=== PATIENT | male | born 1950 | race Caucasian/White ===

== ENCOUNTER 2022-04-24 11:03 | Emergency (ER) | payer MEDICARE, SELFPAY ==
--- NOTE | ~2022-04-24 | XR_ITS ---
EXAMINATION: XR chest 2V DATE: 04/24/2022 13:30 INDICATION: Vomiting and diarrhea TECHNIQUE: Frontal and lateral views of the chest are obtained COMPARISON: 10/04/2011 FINDINGS: The lungs are free of acute opacities. No pleural effusion or pneumothorax. The cardiomedia stinal silhouette is normal. There are bridging osteophytes at multiple levels in the spine, consiste nt with diffuse idiopathic skeletal hyperostosis (DISH). IMPRESSION: 1. No acute cardiopulmonary abnormality. Reviewed, dictated and finalized at location A. CCO CLASSER
[2022-04-24 11:20] VITALS: BP 141/83; PULSE 99; RESP 16; TEMP 36.6; O2SAT 99
[2022-04-24 12:13] LABS: Basophils Percent Auto 0.3 % (0.2-1.2); Eosinophils Absolute Auto 0.1 K/mm3 (0-0.3); Eosinophils Percent Auto 1.7 % (0-4.4); Hematocrit 42.5 % (42.0-52.0); Hemoglobin 14.7 g/dL (14.0-18.0); Immature Granulocyte Absolute 0.01 K/mm3 (0.00-0.031); Immature Granulocyte Percent A 0.2 % (0-0.5); Lymphocytes Absolute Auto 1.34 K/mm3 (0.9-3.2); Lymphocytes Percent Auto 22.6 % (18.3-44.2); Mean Corpuscular HGB Conc 34.6 g/dl (32-36); Mean Corpuscular Hemoglobin 31.1 pg (26-34); Mean Corpuscular Volume 89.9 fl (80-100); Monocytes Absolute Auto 0.9 K/mm3 (0.1-0.6); Neutrophils Absolute Auto 3.6 K/mm3 (1.3-6.7); Neutrophils Percent Auto 60.2 % (45.5-73.1); Platelet Count Result 152 k/mm3 (150-375); Red Blood Count 4.73 M/mm3 (4.6-6.20); Red Cell Distribution Width 13.2 % (11.5-14.5); White Blood Count 5.9 K/mm3 (4.5-10.0)
[2022-04-24 12:22] LABS: Alanine Aminotransferase 23 U/L (6-50); Albumin Level 3.7 g/dL (3.5-5.1); Alkaline Phosphatase 37 U/L (38-126); Anion Gap 8 mmol/L (8-16); Aspartate Amino Transferase 23 U/L (17-59); Bilirubin,Total 0.6 mg/dL (0.2-1.3); Blood Urea Nitrogen 21 mg/dL (9-20); Calcium 8.5 mg/dL (8.4-10.2); Carbon Dioxide 25 mmol/L (22-30); Chloride 101 mmol/L (98-107); Estimated CRCL calculation 74 ml/min; Estimated Glomerular Filt Rate > 60; Glucose 101 mg/dL (65-110); Potassium 4.2 mmol/L (3.4-5.0); Sodium 134 mmol/L (137-145)
[2022-04-24 12:23] LABS: INR 1.1; Prothrombin Time 14.2 Seconds (11.1-14.7)
[2022-04-24 12:24] LABS: Partial Thromboplastin Time 27.5 SECONDS (22.3-36.8)
--- NOTE | 2022-04-24 13:17 | ECG_ITS ---
Measurements Intervals [place] Rate: 60 P: 72 MO: 141 QRS: -4 QRSD: 107 T: 29 QT: 408 QTc: 409 Interpretive Statements SINUS RHYTHM NORMAL ECG NO PREVIOUS ECG AVAILABLE FOR COMPARISON Electronically Signed On 04-24-2022 16:17:00 RN AMBULATORY by Kal Spears D.O.
[2022-04-24 14:12] VITALS: PULSE 63; RESP 13; O2SAT 99
--- NOTE | 2022-04-24 14:12 | ED.GENADULT ---
HPI - General Adult General Chief complaint: Unspecified Stated complaint: dark stools, vomiting blood, GI bleed? Time Seen by Provider: 04/24/22 12:55 History of Present Illness HPI narrative: Patient is a 71-year-old male who presents ER with concerns for possible internal bleeding or injury to his esophagus. 2 days ago he began having some nausea and could not vomit. He is having upset stomach. He started having diarrhea. He then forced himself to vomit. He then had a knot in the back of his throat that has improved since then. No pain in his chest. No exertional chest pain or pressure. No loss of consciousness. After forced himself to vomit he later vomited again and had some coffee-ground material within his emesis. Additionally after that he also had some dark black stools. He does report he took Pepto-Bismol before his stool turned dark. He is unsure if he took Pepto-Bismol before he vomited the coffee-ground material. He is not on any blood thinners. No history of gastric ulcers. Related Data Home Medications Medication Instructions Recorded Confirmed ascorbic acid (vitamin C) 500 mg mg PO 12/05/19 03/10/21 capsule garlic 1,000 mg capsule 1,000 mg PO DAILY 12/05/19 03/10/21 loratadine 10 mg tablet (Claritin) 10 mg PO DAILY 12/05/19 03/10/21 mecobalamin (vitamin B12) 1,000 1,000 mcg PO DAILY 12/05/19 03/10/21 mcg chewable tablet omega-3 fatty acids 1,000 mg 1,000 mg PO DAILY 12/05/19 03/10/21 capsule (Fish Oil Concentrate) Allergies Allergy/AdvReac Type Severity Reaction Status Date / Time No Known Allergies Allergy Verified 03/15/22 10:47 Review of Systems Review of Systems: All systems reviewed & are unremarkable except as noted in HPI and below Constitutional: Constitutional: Denies chills and Denies fever(s) ENT: Denies dysphagia and Reports sore throat Cardiovascular: Cardiovascular: Denies chest pain and Denies radiating jaw, neck or arm pain Respiratory: Respiratory: Denies cough and Denies dyspnea Gastrointestinal: Gastrointestinal: Denies abdominal pain, Reports melena, Reports coffee ground emesis, Reports nausea and Reports vomiting PMF Past Medical History Medical History Smith esophagus Degenerative disc disease mild Environmental allergies Erectile dysfunction Essential (primary) hypertension Finger fracture (~10/25/18) left hand - pointer finger GERD (gastroesophageal reflux disease) History of prostate cancer low grade, followed by urologist Pre-diabetes Prostate cancer Surgical History Surgical History History of arthroscopic knee surgery (~10/2011) History of hand surgery (~10/30/18) pointer finger on Left hand surgery Hx of colonoscopy 12/1995, 07/2005, 07/2010, 09/2013, 10/2018 Hx of tonsillectomy (~1963) Family History Family History (Updated 03/15/22 @ 10:57 by Gilma Clark CMA) Mother Family history of malignant neoplasm Father Family history of lung cancer Sibling Family history of lung cancer Sibling Dementia Sibling Dementia Social History Social History (Updated 03/15/22 @ 10:50 by Glima Clark [facility]) Smoking status: Never smoker Second hand tobacco smoke exposure: No Alcohol intake: current Alcohol use details: seldom Substance use: never Substance use type: does not use Gender identity (if verbalized by the patient): Male Exam Narrative: GENERAL: Well-appearing, well-nourished, and in no acute distress. HEAD: Normocephalic, atraumatic. CHEST: Clear to auscultation. No respiratory distress. HEART: Regular rate and rhythm. Normal peripheral pulses. ABDOMEN: Soft, nontender, nondistended. Rectal deferred. EXTREMITIES: Normal range of motion. No edema. SKIN: Warm, dry, no rash. NEURO: Alert and oriented x3. PSYCH: Normal mood and affect. Course Course Emergency Course:
[2022-04-24 14:52] VITALS: BP 137/75; PULSE 75; RESP 16
== END 2022-04-24 14:54 | disposition home or self-care (01) ==
LOC: ANHED 14:27
PROVIDERS: Emergency Medicine; Emergency Provider Emergency Medicine; PCP Family Medicine
DX: R19.5 Other fecal abnormalities (principal); R07.0 Pain in throat; I10 Essential (primary) hypertension; K21.9 Gastro-esophageal reflux disease without esophagitis; R73.03 Prediabetes; K22.70 Barrett's esophagus without dysplasia; Z85.46 Personal history of malignant neoplasm of prostate
CPT/HCPCS: 36415; 71046; 80053; 85025; 85610; 85730; 86850; 86900; 86901; 93005; 99283

== ENCOUNTER 2023-04-11 15:26 | Emergency (ER) | payer MEDICARE, SELFPAY ==
--- NOTE | ~2023-04-11 | XR_ITS ---
XR lumbar spine 2-3V 04/11/2023 18:12 Indication: Low back pain Procedure: 3 views lumbar spine Comparison: 06/29/2017 Findings: There is disc narrowing at all lumbar levels. There is grade 1 degenerative spondylolisthes is at L5-S1 secondary to facet hypertrophy. Vertebral body heights are maintained. There is multileve l facet hypertrophy of the mid and lower lumbar spine. Mild dextrocurvature. Sacral foramen are symme tric. Pedicles intact. Impression: 1: Moderate lumbar spondylosis. Reviewed, dictated and finalized at location A. Impression: 1: Moderate lumbar spondylosis.
[2023-04-11 15:27] VITALS: BP 161/87; PULSE 61; RESP 20; TEMP 36.1; O2SAT 100
[2023-04-11] MEDS: diazePAM (*CRX) 5 MG TABLET PO (17:56)
[2023-04-11] MEDS: KETOROLAC (*BKC) 60 MG/2 ML VIAL IM (17:57)
--- NOTE | 2023-04-11 18:06 | ED.BACK ---
HPI - Back Pain/Injury General Chief Complaint: Back Pain/Injury Stated Complaint: acute on chronic back pain Time Seen by Provider: 04/11/23 17:43 History of Present Illness HPI Narrative: Patient is a 72-year-old male who presents ER with low back pain. Left-sided. Woke up this morning with increasing pain and having difficulty twisting and bending due to this. No numbness or tingling in the lower extremities or groin. No difficulty with urination/defecation. Patient reports he was kicking a soccer ball yesterday with grandson. He been having some ongoing pain with bending over over the last month and saw his PCP who ordered a x-ray but he is not had it performed yet. He did have outpatient blood work drawn. Related Data Home Medications Medication Instructions Recorded Confirmed ascorbic acid (vitamin C) 500 mg mg PO 12/05/19 03/22/23 capsule garlic 1,000 mg capsule 1,000 mg PO DAILY 12/05/19 03/22/23 loratadine 10 mg tablet (Claritin) 10 mg PO DAILY 12/05/19 03/22/23 mecobalamin (vitamin B12) 1,000 1,000 mcg PO DAILY 12/05/19 03/22/23 mcg chewable tablet omega-3 fatty acids 1,000 mg 1,000 mg PO DAILY 12/05/19 03/22/23 capsule (Fish Oil Concentrate) Allergies Allergy/AdvReac Type Severity Reaction Status Date / Time No Known Allergies Allergy Verified 04/11/23 17:21 Review of Systems Musculoskeletal: Musculoskeletal: Reports back pain, Denies arthralgias, Denies joint swelling and Reports muscle cramps Integumentary/Breasts: Skin/Breast: Denies erythema and Denies rash Neurologic: Denies focal weakness and Denies numbness PMF Past Medical History Medical History Smith esophagus Degenerative disc disease mild Environmental allergies Erectile dysfunction Essential (primary) hypertension Finger fracture (~10/25/18) left hand - pointer finger GERD (gastroesophageal reflux disease) History of prostate cancer low grade, followed by urologist Pre-diabetes Prostate cancer Surgical History Surgical History History of arthroscopic knee surgery (~10/2011) History of hand surgery (~10/30/18) pointer finger on Left hand surgery Hx of colonoscopy 12/1995, 07/2005, 07/2010, 09/2013, 10/2018 Hx of tonsillectomy (~1963) Family History Family History (Updated 03/15/22 @ 10:57 by Gilma Clark [facility]) Mother Family history of malignant neoplasm Father Family history of lung cancer Sibling Family history of lung cancer Sibling Dementia Sibling Dementia Social History Social History (Updated 03/15/22 @ 10:50 by Gilma Clark [facility]) Smoking status: Never smoker Second hand tobacco smoke exposure: No Alcohol intake: current Alcohol use details: seldom Substance use: never Substance use type: does not use Gender identity (if verbalized by the patient): Male Exam Narrative: GENERAL: Well-appearing, well-nourished, and in no acute distress. HEAD: Normocephalic, atraumatic. EYES: PERRL and EOMI. ENT: Mucous membranes moist. Back: No reproducible midline tenderness to the T/L-spine. There is left paraspinal muscular tenderness and spasm Neuroform. EXTREMITIES: Normal range of motion. No edema. SKIN: Warm, dry, no rash. NEURO: Alert and oriented x3. Bears weight without issue. PSYCH: Normal mood and affect. Course Course Emergency Course: Pain improving with Toradol and Valium. Informed of imaging results. Discharge home with supportive medication. Vital Signs Vital signs: Vital Signs Temperature 97.0 F L 04/11/23 15:27 Pulse Rate 61 04/11/23 15:27 Respiratory Rate 20 04/11/23 15:27 Blood Pressure 161/87 H 04/11/23 15:27 Pulse Oximetry 100 04/11/23 15:27 Oxygen Delivery Room Air 04/11/23 15:27 Temperature 97.0 F L 04/11/23 15:27 Pulse Rate 61 04/11/23 15:27 Respiratory Rate 20 04/11/23 15:27 Blo
== END 2023-04-11 19:09 | disposition home or self-care (01) ==
PROVIDERS: Emergency Provider Emergency Medicine; PCP Family Medicine
DX: M54.50 Low back pain, unspecified (principal); I10 Essential (primary) hypertension; Z85.46 Personal history of malignant neoplasm of prostate
CPT/HCPCS: 72100; 96372; 99283; A9270; J1885

== ENCOUNTER 2023-12-20 14:26 | Outpatient (CLI) | payer MEDICARE, SELFPAY ==
--- NOTE | ~2023-12-20 | MR_ITS ---
EXAMINATION: MR lumbar spine wo/w con DATE: 12/20/2023 15:41 INDICATION: Lumbar radiculopathy TECHNIQUE: Magnetic resonance imaging (MRI) of the lumbar spine was performed without intravenous con trast. Sequences included sagittal T2-weighted FSE, sagittal T2-weighted FS FSE, sagittal T1-weighted FSE, and axial T2-weighted FSE. COMPARISON: Lumbar spine radiographs dated 04/11/2023 FINDINGS: 5 degrees upper lumbar dextrocurvature. 2 mm retrolisthesis L1 on L2. 4 mm anterolisthesis L5 on S1. Right-sided L5 pars interarticularis defect. Vertebral body heights are normal. T1 and T2 hyperintens e hemangioma at L2. Marrow signal is otherwise normal. Mild disc height loss at T11-T12, T12-L1, L1-L 2, L4-L5 and L5-S1. The conus medullaris terminates at T12. There is normal signal in the caudal spin al cord. T2 hyperintense likely renal cysts measuring at least 7.3 similar but partially visualized a t the left renal pelvis and 10 mm at the lower pole of the right kidney. Paravertebral soft tissues a re otherwise unremarkable. The following disc levels are specifically discussed: T12-L1: Annular fissure and small left paracentral disc extrusion with disc material extending up to 3 mm caudal to the level of the superior endplate of L1. There is mild to moderate bilateral facet nathan int osteoarthritis. There is minimal left neural foraminal stenosis. There is mild central canal sten osis. L1-L2: Disc is mildly bulging with superimposed annular fissure and left paracentral disc protrusion. There is moderate bilateral facet joint osteoarthritis. There is mild bilateral neural foraminal j carlos nosis. There is mild central canal stenosis. L2-L3: Disc is mildly bulging. There is mild to moderate right and moderate left facet joint osteoart hritis. There is mild bilateral neural foraminal stenosis. There is mild central canal stenosis. L3-L4: Disc is mildly bulging with annular fissure. There is hypertrophy of the ligamentum flavum. Th ere is moderate right and moderate to severe left facet joint osteoarthritis. There is mild bilateral neural foraminal stenosis. There is mild central canal stenosis. L4-L5: Disc is bulging. There is moderate right and severe left facet joint osteoarthritis. There is mild right and mild to moderate left neural foraminal stenosis. There is mild central canal stenosis. L5-S1: Disc is bulging with annular fissure. There is mild right and severe left facet joint osteoart hritis. There is mild bilateral, left greater than right neural foraminal stenosis. There is minimal central canal stenosis. IMPRESSION: 1. L5 spondylolysis with right-sided pars intra-articular is defect and 4 mm anterolisthesis on S1. 2. Mild to moderate lumbar spondylosis. Reviewed, dictated and finalized at location A. IMPRESSION: 1. L5 spondylolysis with right-sided pars intra-articular is defect and 4 mm an terolisthesis on S1. 2. Mild to moderate lumbar spondylosis.
== END 2023-12-20 14:27 | disposition home or self-care (01) ==
PROVIDERS: PCP Family Medicine; Visit Provider Physician Assistant Medical
DX: R22.2 Localized swelling, mass and lump, trunk (principal); C61 Malignant neoplasm of prostate; M43.06 Spondylolysis, lumbar region
CPT/HCPCS: 72158; A9577

== ENCOUNTER 2024-04-11 13:54 | Outpatient (CLI) | payer MEDICARE, SELFPAY ==
--- NOTE | ~2024-04-11 | XR_ITS ---
Right Shoulder Technique: AP and scapular Y views were obtained. Clinical History: Pain Findings: No fracture or dislocation is seen. Osseous alignment is anatomic. The glenohumeral joint i s intact. There is advanced AC joint degenerative change. Soft tissues are unremarkable. Impression: Advanced AC joint degenerative change. Reviewed, dictated and finalized at location . Impression: Advanced AC joint degenerative change.
== END 2024-04-11 13:55 | disposition home or self-care (01) ==
PROVIDERS: PCP Family Medicine; Visit Provider Family Medicine
DX: M19.011 Primary osteoarthritis, right shoulder (principal)
CPT/HCPCS: 73030

== ENCOUNTER 2024-05-09 14:37 | Emergency (ER) | payer MEDICARE, SELFPAY ==
[2024-05-09 14:40] VITALS: BP 139/68; PULSE 98; RESP 18; TEMP 36.4; O2SAT 99
--- NOTE | 2024-05-09 15:21 | ED_ITS ---
HPI - Male Genitourinary General Chief complaint: Urogenital-Male Stated complaint: DIFF/PAINFUL URINATION Time Seen by Provider: 05/09/24 14:56 History of Present Illness HPI Narrative: 73-year-old male with history of GERD, hypertension, prediabetes, prostate cancer about 8 years ago presents to the ED with at bedside for dysuria and hematuria for about 2 days. Patient reports urinary frequency, denies urgency. Reports some suprapubic discomfort. States his urine looks dark orange . He has not noticed any clots. Denies fever, nausea vomiting, history of kidney stones. He does states that he is unsure if he has been fully emptying his bladder. He follows with Dr. Burdick. states he is concerned he has UTI. Related Data Home Medications Medication Instructions Recorded Confirmed ascorbic acid (vitamin C) 500 mg mg PO 12/05/19 04/08/24 capsule garlic 1,000 mg capsule 1,000 mg PO DAILY 12/05/19 04/08/24 loratadine 10 mg tablet (Claritin) 10 mg PO DAILY 12/05/19 04/08/24 mecobalamin (vitamin B12) 1,000 1,000 mcg PO DAILY 12/05/19 04/08/24 mcg chewable tablet omega-3 fatty acids 1,000 mg 1,000 mg PO DAILY 12/05/19 04/08/24 capsule (Fish Oil Concentrate) Allergies Allergy/AdvReac Type Severity Reaction Status Date / Time No Known Allergies Allergy Verified 04/08/24 15:02 Review of Systems Review of Systems: All systems reviewed & are unremarkable except as noted in HPI and below PMFSH Past Medical History Medical History Smith esophagus Degenerative disc disease mild Environmental allergies Erectile dysfunction Essential (primary) hypertension Finger fracture (~10/25/18) left hand - pointer finger GERD (gastroesophageal reflux disease) Hip pain History of prostate cancer low grade, followed by urologist Pre-diabetes Prostate cancer Shoulder pain Surgical History Surgical History History of arthroscopic knee surgery (~10/2011) History of hand surgery (~10/30/18) pointer finger on Left hand surgery Hx of colonoscopy 12/1995, 07/2005, 07/2010, 09/2013, 10/2018 Hx of tonsillectomy (~1963) Family History Family History Mother Family history of malignant neoplasm Father Family history of lung cancer Sibling Family history of lung cancer Sibling Dementia Sibling Dementia Social History Social History Smoking status: Never smoker Second hand tobacco smoke exposure: No Alcohol intake: current Alcohol use details: seldom Substance use: never Substance use type: does not use Gender identity (if verbalized by the patient): Male Exam Narrative: GENERAL: Well-appearing, well-nourished, and in no acute distress. HEAD: Normocephalic, atraumatic. EYES: EOMI. ENT: Nares clear, no rhinorrhea or epistaxis. Mucous membranes moist. NECK: Supple. CHEST: Clear to auscultation. No respiratory distress. HEART: Regular rate and rhythm. No murmur heard. Normal peripheral pulses. ABDOMEN: Soft, nontender, nondistended, normal active bowel sounds. No rebound, guarding or rigidity. No CVA tenderness EXTREMITIES: Normal range of motion. No edema. SKIN: Warm, dry, no rash. NEURO: No focal deficits. Alert and oriented x3 Course Vital Signs Vital signs: Vital Signs Temperature 97.5 F L 05/09/24 14:40 Pulse Rate 98 05/09/24 14:40 Respiratory Rate 18 05/09/24 14:40 Blood Pressure 139/68 05/09/24 14:40 Pulse Oximetry 99 05/09/24 14:40 Oxygen Delivery Room Air 05/09/24 14:40 Temperature 97.5 F L 05/09/24 14:40 Pulse Rate 98 05/09/24 14:40 Respiratory Rate 18 05/09/24 14:40 Blood Pressure 139/68 05/09/24 14:40 Pulse Oximetry 99 05/09/24 14:40 Oxygen Delivery Room Air 05/09/24 14:40 MDM - Male Genitourinary MDM Narrative Medical decision making narrative: 73-year-old male presents to the emergency department for dark orange urine and dysuria for 2 days. Patient also reporting he is unsure if he is fully empty his bladder. He has remote history of prostate cancer. Vitals are stable. He is afebrile nontoxic appearing. Abdomen is soft and nontender. no CVA tenderness. Bladder scan shows the patient is not retaining urine. UA is significant for UTI with nitrites, greater than 100 wbc's, 3+ leuk esterase. He does have 11-20 RBCs. He has no history of kidney stones, no abdominal pain, no CVA tenderness, no nausea or vomiting. I have very low suspicion for kidney stone. He is very well appearing. Feel he is safe for d/c. Will start the patient on ciprofloxacin have a follow-up closely with his urologist. Discussed strict ED return precautions. He is agreeable with the plan and verbalized understanding. Discharged in stable condition. Lab Data Labs: Lab Results 05/09/24 Range/Units 15:01 Urine Color Dark yellow (Yellow) Urine Appearance Cloudy H (Clear) Urine pH 5.5 (5.0-9.0) Ur Specific [place] 1.030 (1.001-1.035) Urine Protein 1+ H (Negative) mg/dL Urine Glucose (UA) Negative (Negative) mg/dL Urine Ketones 1+ H (Negative) mg/dL Ur Blood (Man) 2+ H (Negative) Urine Nitrate Positive H (Negative) Urine Bilirubin 1+ H (Negative) Urine Urobilinogen 1.0 (<2.0) mg/dL Add Ur Microanalysis Reviewed Leukocyte Esterase Rfl 3+ H (Negative) RAMANDEEP/UL Urine RBC 11-20 H (0-2) /hpf Urine WBC >100 H (0-3) /hpf Ur Squamous Epith Cells None seen (Few) /hpf Urine Bacteria 2+ H /hpf Urine Casts 6-10 Discharge Plan Discharge Clinical Impression: Urinary tract infection Qualifiers: Urinary tract infection type: acute cystitis Hematuria presence: without hematuria Qualified Code(s): N30.00 - Acute cystitis without hematuria Patient Disposition: Home, Self-Care Condition: Stable Instructions: Antibiotic Form, Urinary Tract Infection in Men (ED) Additional Instructions: Follow-up with your urologist. Return to the emergency department if you develop abdominal pain, flank pain, fever, vomiting or other concerning symptoms. Take your antibiotic as directed. Prescriptions: New ciprofloxacin HCl 500 mg tablet 500 mg PO Q12H Qty: 14 0RF No Action omega-3 fatty acids [Fish Oil Concentrate] 1,000 mg capsule 1,000 mg PO DAILY ascorbic acid (vitamin C) 500 mg capsule PO mecobalamin (vitamin B12) 1,000 mcg tablet,chewable 1,000 mcg PO DAILY garlic 1,000 mg capsule 1,000 mg PO DAILY loratadine [Claritin] 10 mg tablet 10 mg PO DAILY cyclobenzaprine 10 mg tablet 10 mg PO TID PRN (Reason: muscle spasm) Qty: 20 0RF naproxen 375 mg tablet 375 mg PO BID Qty: 14 0RF losartan 100 mg tablet 100 mg PO DAILY Qty: 90 1RF pantoprazole 40 mg tablet,delayed release (DR/EC) 40 mg PO QAM Qty: 90 1RF Follow-up/Referrals: Chaparrita Osorio MD [Primary Care Provider] -
[2024-05-09 15:22] LABS: Add Urine Microscopic? YES; Appearance Urine Cloudy (Clear); Bacteria Urine 2+ /hpf; Bilirubin Urine 1+ (Negative); Blood Urine 2+ (Negative); Color Urine Dark Yellow (Yellow); Glucose Urine UA Negative (Negative); Ketones Urine 1+ mg/dL (Negative); Leukocyte Esterase Ur 3+ LEU/UL (Negative); Need Manual Microscopic Reviewed; Nitrate Urine Positive (Negative); Protein Urine 1+ mg/dL (Negative); Squamous Epithelial Cell Urine None Seen /hpf (Few); WBC Urine >100 /hpf (0-3); pH Urine 5.5 (5.0-9.0)
[2024-05-09] MEDS: CIPROFLOXACIN 500 MG TAB PO (16:03)
== END 2024-05-09 16:06 | disposition home or self-care (01) ==
PROVIDERS: Emergency Provider Physician Assistant; PCP Family Medicine
DX: N30.00 Acute cystitis without hematuria (principal); I10 Essential (primary) hypertension; K21.9 Gastro-esophageal reflux disease without esophagitis; R73.03 Prediabetes; Z85.46 Personal history of malignant neoplasm of prostate; K22.70 Barrett's esophagus without dysplasia
CPT/HCPCS: 81001; 87077; 87086; 87186; 99283; A9270

== ENCOUNTER 2024-08-01 14:24 | Outpatient (CLI) | payer MEDICARE, SELFPAY ==
--- OUTSIDE RECORDS SUMMARY | 2024-08-01 14:28 | XMS_ITS | Clinical Summary ---
Author Organization [facility] Address [address] [place] [id number] Care Team Providers Care Field Counsel Name Role Phone Chaparrita Osorio MD Primary Care Provider [phone] Allergies No known active allergies Medications losartan 100 MG tablet Take 100 mg by mouth daily. Active pantoprazole EC 40 MG tablet Take 40 mg by mouth daily. Active Ascorbic Acid 250 MG Tab Take 500 mg by mouth daily. Active vitamin D3, cholecalciferol, 1000 UNIT Tab tablet Take 1 tablet by mouth daily. Active Cyanocobalamin 2500 MCG SL Tab Take 2,500 mcg by mouth daily. Active GARLIC HIGH POTENCY OR Take 1,000 mg by mouth daily. Active loratadine 10 MG disintegrating tablet Take by mouth as needed. Active omega-3 acid 1000 MG capsule Take 1,200 mg by mouth daily. Active VITAMIN E HIGH POTENCY OR Take 400 Int'l Units by mouth daily. Active COVID-19 Specimen Collection Kit USE 1 KIT TODAY DIRECTED 1 Active sildenafil 100 MG tablet 1 Active Family History Medical History Relation Comments Dementia Brother Cancer Father Cancer Mother Cancer Sister 1 Cancer Sister 2 Dementia Sister 3 Dementia Sister 4 Relation Status Comments Brother Father Mother Sister 1 Sister 2 Alive Sister 3 Alive Sister 4 Alive Social History Tobacco Use Types Packs/Day Years Used Date Smoking Tobacco: Never Smokeless Tobacco: Never Tobacco Cessation:Counseling Given: Not Answered Alcohol Use Standard Drinks/Week Comments Yes 0 (1 standard drink = 0.6 oz pur e alcohol) seldom Sex and Gender Information Value Date Recorded Sex Assigned at Not on file Legal Sex Male 5:24 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 Gender Identity Not on file Sexual Orientation Not on file Last Filed Vital Signs Vital Sign Reading Time Taken Comments Blood Pressure 117/73 07/12/2022 8:20 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 Pulse 64 07/12/2022 8:20 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 Temperature 36.7 C (98 F) 07/12/2022 8:03 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 Respiratory Rate 14 07/12/2022 8:20 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 Oxygen Saturation 96% 07/12/2022 8:20 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 Inhaled Oxygen Concentration - - Weight 104.3 kg (230 lb) 07/04/2022 1:43 PM 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 Height 177.8 cm (5' 10 ) 07/04/2022 1:43 PM 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 Body Mass Index 33 07/04/2022 1:43 PM 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 Plan of Treatment Health Maintenance Due Date Last Done Comments PHQ-2 (Physician [place]) 1962 Hepatitis C 1969 Zoster Vaccines (1 of 2) 2001 Annual Medicare Wellness Visit 2016 COVID-19 Vaccine ( season) 2024 03/02/2022, 06/23/2021, 09/15/2020, Additional history exists Influenza Adult (#1) 2024 02/13/2020, 04/11/2019, 03/13/2018 PHQ-2 (Physician [place]) 06/12/2024 RSV Immunization or 60+ Years (1 - 1-dose 75+ series) 2026 DTaP, Tdap and Td Vaccines (3 - Td or Tdap) 03/09/2031 03/09/2021, 07/20/2010, 12/27/2000 Colorectal Cancer Screening Colonoscopy (10 Years) 07/12/2032 07/12/2022, 07/12/2022, 06/25/2021, Additional history exists Pneumococcal Vaccine: 65+ Years Completed 12/05/2019, 02/07/2017 Meningococcal B Vaccine Aged Out No l onger eligible based on patient's age to complete this topic Meningococcal Vaccine Aged Out No sherry ricardo eligible based on patient's age to complete this topic RSV Immunizations Under 20 Months Aged Out No longer eligible based on patient's age to complete this topic Medical Devices Implanted Type Area Rotoprinter Device Identifier Shelf Expiration Date Model / Serial / Lot Clip Resolution 360 Deg 2.8mm X 235cm - [id number] Implanted:Qty : 3 on 06/25/2021 by Kyle Whittaker DO at [facility] Clip Implant N/A: Abdomen [place] Emida MARICEL 03/22/2024 [id number] / [id number] 0 / [id number] Resolution 360 Ultra Clip Implanted:Qty : 1 on 06/25/2021 by Kyle Whittaker DO at [facility] N/A: Abdomen [id number] 03/25/2024 / [id number] / [id number] Procedures Procedure Name Priority Date/Time Associated Diagnosis Comments COLONOSCOPY Routine 07/12/2022 6:47 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 from Last 3 Months or Most Recently Relevant to Health Maintenance Insurance MEDICARE [facility] Care Teams Field Counsel Relationship Specialty Start Date End Date Chaparrita Osorio MD [address] [place] [id number] PCP - General FAMILY PRACTICE 06/25/21
--- OUTSIDE RECORDS SUMMARY | 2024-08-01 14:28 | XMS_ITS | Referral Summary ---
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
--- OUTSIDE RECORDS SUMMARY | 2024-08-01 14:28 | XMS_ITS | Encounter Summary ---
Author Organization [facility] Address [address] [place] [address] Care Team Providers Care Ios Developer Name Role Phone Chaparrita Osorio MD Primary Care Provider [phone] Encounter Details Date Type Department Care Team (Late st Contact Info) Description 06/21/2021 Prep for Procedure Health [place] [address] Kyle Whittaker, Social History Tobacco Use Types Packs/Day Years Used Date Smoking Tobacco: Never Smokeless Tobacco: Never Alcohol Use Standard Drinks/Week Comments Yes 0 (1 standard drink = 0.6 oz pur e alcohol) seldom Sex and Gender Information Value Date Recorded Sex Assigned at Not on file Legal Sex Male 5:24 AM PER DIEM NURSE Gender Identity Not on file Sexual Orientation Not on file COVID-19 Exposure Response Date Recorded In the last month, have you been in contact with someone who was confirmed or suspected to have Coronavirus / COVID-19? No / Unsure 06/21/2021 12:36 PM PER DIEM NURSE documented as of this encounter Plan of Treatment Not on file documented as of this encounter Visit Diagnoses Diagnosis History of colon polyps- Primary Personal history of colonic polyps documented in this encounter Care Teams Ios Developer Relationship Specialty Start Date End Date Chaparrita Osorio MD [address] [place] [address] PCP - General FAMILY PRACTICE 06/25/21 documented as of this encounter
--- OUTSIDE RECORDS SUMMARY | 2024-08-01 14:28 | XMS_ITS | Clinical Summary ---
Author Organization [address] Address [address] [place] [id number] Care Team Providers Care Digital Marketing Manager Name Role Phone Bonifacio Sheehan MD Primary Care Provider [phone] Social History Tobacco Use Types Packs/Day Years Used Date Smoking Tobacco: Never Assessed Personal Safety Answer Date Recorded Getting School Help Needed Not on file 08/25 Sex and Gender Information Value Date Recorded Sex Assigned at Not on file Legal Sex Male 11:54 PM CHILD WELFARE MANAGER Gender Identity Not on file Sexual Orientation Not on file Plan of Treatment Not on file [place] [address] [facility] Care Teams Digital Marketing Manager Relationship Specialty Start Date End Date Bonifacio Sheehan MD [address] [place] [address] PCP - General 05/12/14
[2024-08-01 15:03] LABS: Add Urine Microscopic? YES; Appearance Urine Cloudy (Clear); Bacteria Urine 4+ /hpf; Bilirubin Urine Negative (Negative); Blood Urine Negative (Negative); Color Urine Yellow (Yellow); Glucose Urine UA Negative (Negative); Ketones Urine Trace mg/dL (Negative); Leukocyte Esterase Ur 3+ LEU/UL (Negative); Nitrate Urine Positive (Negative); Non Pathogenic Casts 0-2; Protein Urine Negative (Negative); RBC Urine 0-2 /hpf (0-2); Specific Grav Ur 1.021 (1.001-1.035); Squamous Epithelial Cell Urine None Seen /hpf (Few); Urobilinogen Urine 0.2 mg/dL (<2.0); WBC Urine >100 /hpf (0-3); pH Urine 5.5 (5.0-9.0)
== END 2024-08-01 14:25 | disposition home or self-care (01) ==
PROVIDERS: PCP Family Medicine; Visit Provider Family Medicine
DX: R30.0 Dysuria (principal)
CPT/HCPCS: 81001; 87077; 87086; 87186

== ENCOUNTER 2024-08-13 00:26 | Day surgery (SDC) | payer MEDICARE, SELFPAY ==
--- NOTE | 2024-08-12 11:34 | PC.NURSE ---
Report to the Outpatient Waiting Room, entrance under the green pavilion located off [facility], at time ___8:30AM____ on date ___08/13/24____. Planned Procedure Time: ___10:30AM .? Time changes happen often and if your time is changed the preop area will call you the afternoon before. - You and your visitor will be asked to self-screen and do not enter if you have any COVID symptoms. Please call surgeon if you need to reschedule. - A mask is optional within the hospital at this time. Patients may have clear liquids (water, carbonated beverages, clear teas, apple juice) until 3 hours prior to surgery (7:30AM) with a maximum of 20 ounces. - No food from midnight until time of surgery and no smoking, or chewing tobacco (or any form of nicotine). No chewing gum, candy or mints. Take only the following medications with a SIP of water on the morning of surgery: ___BACTRIM DO NOT STOP ANY OF YOUR OTHER PRESCRIPTION MEDICATIONS PRIOR TO SURGERY EXCEPT THE FOLLOWING Hold all vitamins and supplements for 3 days per anesthesiologist. Medications to discontinue per physician __HOLD ALL NSAIDS(NAPROXEN & IBUPROFEN) 7 DAYS PRE-OP PER DR COLON- LAST DOSE 08/05/24. HOLD ALL VITAMINS/SUPPLEMENTS 7 DAYS PRE-OP PER DR COLON- LAST DOSE 08/05/24. Please no make-up, nail djiboutian, hairspray, perfume, deodorant, or body powder the day of surgery.? No jewelry (including any body piercings) or valuables the day of surgery, leave them at home.? Please take a shower or bath the night before, or the morning of, surgery with an antibacterial soap.? Wear comfortable, loose fitting clothing.? - Jewelry must be removed prior to entering the operating room.? Rings and piercings that are not removed may be cut off. - The hospital will not accept responsibility for valuables.? - Please leave all valuables, including medications, at home the day of surgery. If you are going home after surgery, a licensed local company refrigerated truck driver must drive you home.? - NO public transportation without another adult if you receive anesthesia. - We recommend that an adult stay with you for 24 hours following discharge. - We also recommend that you do not drive, make important decision, drink alcoholic beverages, or take any drugs that were not prescribed by your health care provider for at least 24 hours after your discharge time. Follow any additional instructions given to you from your surgeon. Telephone instructions given to ___PATIENT AND WIFE and asked if any additional questions and then verbalized understanding. Patient advised to call surgeon office or pre surgery nurse liaison [phone] if any additional questions.
[2024-08-12 11:37] VITALS: BMI 34.4
[2024-08-13] VITALS (10 sets, daily range): BP systolic 115–144; BP diastolic 46–96; PULSE 61–77; RESP 12–20; TEMP 36.1–36.4; O2SAT 94–99
[2024-08-13] MEDS: KETOROLAC 15 MG/ML VIAL (*BKC) IV PUSH (06:45)
[2024-08-13] MEDS: ACETAMINOPHEN 500 MG TABLET 1000 MG PO (06:45)
[2024-08-13] MEDS: LACTATED RINGERS 1,000 ML 30 ML IV CONT ×2 (06:45→10:13)
--- NOTE | 2024-08-13 07:11 | WPDANESEPPF ---
Anes - Initial Pre Proc Eval Procedure: Operation Date: 08/13/24 07:30 Proposed Procedures p Right Shoulder Arthroscopic Rotator Cuff Repair, Biceps Tendodesis, Labral Debridement, Subacromial Decompression - Osmin Alexander MD Date/Time: 08/13/24 07:11 Surgeon: Osmin Alexander MD Pre Op Diagnosis: SLAP tear right shoulder Patient Data Age: 74 Gender: M Height: 1.78 m Weight: 107.2 kg Last Vital Signs Temp 97.6 F 08/13/24 06:45 Pulse 67 08/13/24 06:45 Resp 14 08/13/24 06:45 BP 144/70 H 08/13/24 06:45 Pulse Ox 99 08/13/24 06:45 O2 Del Method Room Air 08/13/24 06:45 Allergies Allergy/AdvReac Type Severity Reaction Status Date / Time No Known Allergies Allergy Verified 08/13/24 07:09 Home Medications ?Medication ?Instructions ?Recorded ?Confirmed ?Type ascorbic acid (vitamin C) 500 mg 500 mg PO DAILY 12/05/19 08/13/24 History capsule garlic 1,000 mg capsule 1,000 mg PO DAILY 12/05/19 08/13/24 History loratadine 10 mg tablet (Claritin) 10 mg PO DAILY PRN allergy symptoms 12/05/19 08/13/24 History omega-3 fatty acids 1,000 mg 1,000 mg PO DAILY 12/05/19 08/13/24 History capsule (Fish Oil Concentrate) naproxen 375 mg tablet 375 mg PO BID #14 tabs 04/11/23 08/12/24 Rx losartan 100 mg tablet 100 mg PO DAILY #90 tabs 03/06/24 08/13/24 Rx pantoprazole 40 mg tablet,delayed 40 mg PO QAM #90 tabs 04/02/24 08/12/24 Rx release acetaminophen 500 mg tablet 1,000 mg PO Q6H PRN pain 08/12/24 08/12/24 History (Acetaminophen Pain Relief) cholecalciferol (vitamin D3) 125 5,000 unit PO DAILY 08/12/24 08/13/24 History mcg (5,000 unit) capsule ibuprofen 200 mg tablet (IBU-200) 400 mg PO Q6H PRN pain 08/12/24 08/12/24 History mecobalamin (vitamin B12) 2,500 2,500 mcg PO DAILY 08/12/24 08/13/24 History mcg chewable tablet sulfamethoxazole 800 1 tablet PO Q12H 08/12/24 08/13/24 History mg-trimethoprim 160 mg tablet vitamin E 400 unit tablet 450 mg PO DAILY 08/12/24 08/13/24 History Patient hx anesthesia problems: none Family hx anesthesia problems: none Results Review: All pre-operative results and documents have been reviewed as part of the pre-operative evaluation. [facility] Past Medical History Medical History Hip pain Shoulder pain Environmental allergies Essential (primary) hypertension Prostate cancer Finger fracture (~10/25/18) left hand - pointer finger GERD (gastroesophageal reflux disease) Pre-diabetes Degenerative disc disease mild History of prostate cancer low grade, followed by urologist Erectile dysfunction Smith esophagus Surgical History Surgical History Hx of colonoscopy 12/1995, 07/2005, 07/2010, 09/2013, 10/2018 History of hand surgery (~10/30/18) pointer finger on Left hand surgery History of arthroscopic knee surgery (~10/2011) Hx of tonsillectomy (~1962) Family History Family History Mother Family history of malignant neoplasm Father Family history of lung cancer Sibling Family history of lung cancer Sibling Dementia Sibling Dementia Social History Social History Smoking status: Never smoker Second hand tobacco smoke exposure: No Alcohol intake: current Alcohol use details: seldom Substance use: never Substance use type: does not use Do You Feel Safe in your Home?: Yes Lack of Transportation: No Lack of Food: Never True Current Housing: I Have Housing Concerned About Future Housing: No Difficulty Paying Gas/Electric Bills: No Difficulty Paying for Meds: No Currently Unemployed: No Education: High School Diploma/GED Difficulty w/ Childcare or Family Care: No Gender identity (if verbalized by the patient): Male Anes - Eval Final PreProcedure Day of Procedure 08/13/24 07:11 Patient weight: obese Lungs: normal air movement Airway: Mallampati scale class III Neurological: alert and oriented Last oral intake: >/= 8 hours ASA classification: III Emergent: no Anesthetic plan: proceed Anesthesia type and monitoring: general ETT and standard monitoring Results Review: All pre-operative results and documents have been reviewed as part of the pre-operative evaluation. HTN, preDM, overall good functional status, [place] [address] [place], no excessive cp or sob. Informed Consent: The patient's anesthetic plan and its attendant risks and benefits were discussed with the patient/family/POA. Questions were solicited and answers provided to the satisfaction of the patient/family/POA.
--- NOTE | 2024-08-13 07:17 | WPDHPUPDATE1 ---
History and Physical Update Update Date/Time: 08/13/24 07:17 History and Physical has been reviewed, including an updated exam of the patient. There are NO changes in the patient's condition. Risks, benefits, and alternatives have been discussed and questions answered. Patient agrees to proceed with procedure.
[2024-08-13] MEDS: ceFAZolin 2 GM/D5W 50 ML 2 GM/50 ML BAG IVPB (07:55)
--- NOTE | 2024-08-13 08:25 | WPDANESPNB ---
Anes - Peripheral Nerve Block Date/Time: 08/13/24 08:25 I have discussed with the patient/family/POA the placement of a peripheral nerve block for post-operative pain management, including associated risks, benefits, complications, and side effects. Alternative methods of post-operative analgesia were detailed. Questions were solicited and answers provided to the satisfaction of the patient/family/POA. Time-Out: A pre-procedural Time-Out was completed immediately before starting the procedure and confirmed: Patient Identification, Site, Procedure, Patient Position and the Availability of Requisite Equipment. Clinical Indications: Acute post-operative pain management requested by the operative surgeon. Nerve Block Insertion Note Anes-nerve block: interscalene right Patient position: supine Skin prep: chlorhexidine Needle: 22 gauge, stimulating, insulated echogenic needle. Needle length: 80 mm Technique: ultrasound Injectate: other (Bupiv 0.5%, 15 mls. ) Observations: tolerated well Complications: none Procedure start time:: 720 Procedure end time:: 726
[2024-08-13] MEDS: EPINEPHrine HCL INJ 1 MG/ML AMPUL IRRIGATION (08:31)
--- NOTE | 2024-08-13 10:38 | W.PM.PROC2 ---
Procedure Note - Detailed Date of Procedure 08/13/24 Pre-op Diagnosis Right shoulder Large full-thickness rotator cuff tear. Degenerative SLAP tear. Post-op Diagnosis Other (1. Large complete rotator cuff tear 2. Subacromial impingement 3. Biceps rupture) Procedure Performed Right shoulder 1. Arthroscopic rotator cuff repair 2. Arthroscopic subacromial decompression 4. Arthroscopic biceps and labral debridement Surgeon Osmin Alexander MD Economic Development Specialist Estefania Aguayo PA-C Anesthesia General and Regional ( interscalene block) Indications Acute on chronic rotator cuff tear with weakness. The MRI showed a large retracted rotator cuff tear and possible biceps tendinosis versus rupture. Mild degenerative changes. There was no atrophy or fatty infiltration noted. Findings Large retracted rotator cuff tear. The biceps was previously ruptured and scarred in distally. The biceps stump appeared on the MRI to be the end of the supraspinatus, however the actual supraspinatus was retracted medial to the glenoid face. It was very chronic and immobile despite anterior interval slide and soft tissue releases. The posterior cuff was mobile and repairable with 2 bone tunnels and 6 sutures. A margin convergence was done to the posterior aspect of the supraspinatus and another supplemental horizontal mattress was placed. The suture limbs were brought susana-laterally to a SwiveLock anchor to support the repair. All sutures were suture tape. The repaired tendon quality was satisfactory. The glenoid cartilage looked very healthy. The humerus had mild chondromalacia treated with chondroplasty. Description of Procedure Preoperative antibiotics were given. An interscalene block was administered in the preoperative area. The patient was bought brought to the operating room. A general anesthetic was administered. The patient was carefully positioned in the beach chair position. The head and neck were carefully positioned. The non operative extremity was also carefully positioned. The shoulder was prepped and draped in the usual sterile fashion. Examination was performed. Standard posterior and anterior arthroscopic portals were established. Inflow achieved with the arthroscopic pump using saline and epinephrine. The glenohumeral joint was carefully inspected. The articular surfaces were good other than mild chondromalacia on the humerus. A very large essentially massive tear was identified and a large biceps stump was debrided. Imaging of this area suggested that the remaining supraspinatus tendon was more lateral than it actually was. The subscapularis had minimal split for a partial-thickness. The biceps appeared auto tenodesed in the groove. There was additional scar about the biceps tendon in the rotator interval which was debrided. Attention was turned to the subacromial space. A complete bursectomy was performed. The undersurface of the acromion was very prominent consistent with a type 3 acromion. The arthroscopic bur was used to perform an acromioplasty. The tear configuration was carefully assessed. The posterior infraspinatus tissue was fairly mobile. The supraspinatus was not mobile at all. A margin conversion was placed and an interval slide performed. However, the supraspinatus tendon could not be safely reduced back to the footprint. It was decided to perform a partial repair of the posterior rotator cuff. At this point, 2 tunnels were created at the posterior greater tuberosity. Three sutures were passed through each tunnel. All sutures were then passed through the cuff tissue. The sutures were tied arthroscopically. The posterior tissue was brought slightly anterior to an anatomic position. An additional mattress suture was combined with the margin convergence suture tails and brought anterolaterally to a SwiveLock anchor. This provided supplemental support for the repair. The arthroscopic instruments were removed. The wounds were closed with 3-0 Monocryl subcuticular suture and steri strips. There were no complications. A sling was applied and the patient brought to the recovery room. Physician insurance assistant, Estefania Aguayo PA-C, required for surgery; including patient positioning, draping, arthroscopic camera operation, maintaining instrument position, suture retrieval, wound closure, and dressing and sling placement. Implants Arthrex SwiveLock anchor and multiple suture tapes. Estimated Blood Loss 20 Pathology None sent Complications No immediate complications Condition Stable Disposition PACU [facility] Billing Surgery - Charge Forward: Surgery Billing
== END 2024-08-13 12:30 | disposition home or self-care (01) ==
PROVIDERS: PCP Family Medicine; Visit Provider Orthopaedic Surgery
PROC: (CPT 29805; principal; 2024-08-13 07:30)
DX: S43.431A Superior glenoid labrum lesion of right shoulder, initial encounter (principal); M75.121 Complete rotator cuff tear or rupture of right shoulder, not specified as traumatic; M67.813 Other specified disorders of tendon, right shoulder; X50.0XXA Overexertion from strenuous movement or load, initial encounter; G89.18 Other acute postprocedural pain; I10 Essential (primary) hypertension; Z85.46 Personal history of malignant neoplasm of prostate; K21.9 Gastro-esophageal reflux disease without esophagitis
CPT/HCPCS: 64415; 29827; 29826; 93005; A4565; A9270; C1713; J0171; J0690; J1100; J1885; J2003; J2250; J2270; J2371; J2405; J2704; J3010; J7120

== ENCOUNTER 2024-08-30 08:04 | Outpatient (CLI) | payer MEDICARE, SELFPAY ==
--- NOTE | ~2024-08-30 | CT_ITS ---
Non-contrast CT scan of the Abdomen and Pelvis Clinical indication: Recurrent UTI Technique: 2.5 mm axial scans were obtained through the abdomen and pelvis without intravenous or or al contrast. Dose reduction technique was used on this scan by utilizing automated exposure control a nd iterative reconstruction technique. The dose-length product (DLP) was 1016.43 mGy-cm. Findings: Images through the lung bases reveal no abnormalities. There is no evidence of renal or ureteral calculi. The kidneys and the ureters are nondilated. The liver, spleen, pancreas, gallbladder, and adrenals appear normal. There is no aortic aneurysm. There is no evidence of bowel obstruction. Probable mild mesenteric panniculitis with minimal hazines s and shotty lymph nodes in the central mesentery. Images through the pelvis were performed. There is no evidence of ascites or lymphadenopathy. Urinary bladder unremarkable. Prostate gland enlarged. No pelvic mass evident. Impression: Probable mild mesenteric panniculitis. Enlarged prostate gland. Reviewed, dictated and finalized at [facility]. Impression: Probable mild mesenteric panniculitis. Enlarged prostate gland.
--- OUTSIDE RECORDS SUMMARY | 2024-08-30 08:11 | XMS_ITS | Encounter Summary ---
Author Organization [facility] Address [address] [place] [address] Care Team Providers Care Library Helper Name Role Phone Chaparrita Osorio MD Primary Care Provider [phone] Encounter Details Date Type Department Care Team (Late st Contact Info) Description 06/21/2021 Prep for Procedure [facility] [place] [address] Kyle Whittaker, Social History Tobacco Use Types Packs/Day Years Used Date Smoking Tobacco: Never Smokeless Tobacco: Never Alcohol Use Standard Drinks/Week Comments Yes 0 (1 standard drink = 0.6 oz pur e alcohol) seldom Sex and Gender Information Value Date Recorded Sex Assigned at Not on file Legal Sex Male 5:24 AM TRANSMISSIONS SYSTEMS OPERATOR Gender Identity Not on file Sexual Orientation Not on file COVID-19 Exposure Response Date Recorded In the last month, have you been in contact with someone who was confirmed or suspected to have Coronavirus / COVID-19? No / Unsure 06/21/2021 12:36 PM TRANSMISSIONS SYSTEMS OPERATOR documented as of this encounter Plan of Treatment Not on file documented as of this encounter Visit Diagnoses Diagnosis History of colon polyps- Primary Personal history of colonic polyps documented in this encounter Care Teams Library Helper Relationship Specialty Start Date End Date Chaparrita Osorio MD [address] [place] [address] PCP - General FAMILY PRACTICE 06/25/21 documented as of this encounter
--- OUTSIDE RECORDS SUMMARY | 2024-08-30 08:11 | XMS_ITS | Referral Summary ---
Author Organization [address] Address [address] [place] [phone] Care Team Providers Care Coronary Clinical Specialist Name Role Phone Bonifacio Sheehan MD Primary Care Provider [phone] Social History Tobacco Use Types Packs/Day Years Used Date Smoking Tobacco: Never Assessed Personal Safety Answer Date Recorded Getting School Help Needed Not on file 08/25 Sex and Gender Information Value Date Recorded Sex Assigned at Not on file Legal Sex Male 11:54 PM FIRMWARE ENGINEER Gender Identity Not on file Sexual Orientation Not on file Plan of Treatment Not on file Insurance MEDICARE [facility] Care Teams Coronary Clinical Specialist Relationship Specialty Start Date End Date Bonifacio Sheehan MD [address] [place] [address] PCP - General 05/12/14
--- OUTSIDE RECORDS SUMMARY | 2024-08-30 08:11 | XMS_ITS | Clinical Summary ---
Author Organization [facility] Address [address] [place] [address] Phone Care Team Providers Care Page Designer Name Role Phone Isabella Guan MD Primary Care Provi brannon Allergies No known active allergies Medications losartan (COZAAR) 100 MG Tablet TK ONE T PO QD 0 05/26/2018 Active pantoprazole (PROTONIX) 40 MG Tablet Delayed Response TK 1 T PO QD MAKE APPT. WITH DOCTOR NICOLASA FOR REFILLS 0 05/28/2018 Active VITAMIN E PO Take 400 Int'l Units by mouth daily. Active Seco-3 Fatty Acids (FISH OIL PO) Take 1,200 mg by mouth daily. Active Ascorbic Acid (VITAMIN C PO) Take 500 mg by mouth daily. Active Cholecalciferol (VITAMIN D PO) Take 1 Tab by mouth daily. Active GARLIC PO Take 1,000 mg by mouth daily. Active Cyanocobalamin (VITAMIN B12 PO) Take 2,500 mcg by mouth daily. Active Loratadine (CLARITIN PO) Take by mouth as needed. Active Active Problems No known active problems Family History Medical History Relation Name Comments Cancer Father lung Cancer Mother brain, lung Cancer Paternal Uncle lung Cancer Sister lung Relation Name Status Comments Father Mother Paternal Uncle Sister Social History Tobacco Use Types Packs/Day Years Used Date Smoking Tobacco: Never Smokeless Tobacco: Never Tobacco Cessation:Counseling Given: No Alcohol Use Standard Drinks/Week Comments Yes 0 (1 standard drink = 0.6 oz pur e alcohol) rarely Sex and Gender Information Value Date Recorded Sex Assigned at Not on file Legal Sex Male 7:58 PM CDT Gender Identity Not on file Sexual Orientation Not on file Last Filed Vital Signs Vital Sign Reading Time Taken Comments Blood Pressure 138/64 05/14/2019 2:52 PM COMPUTER ANALYST Pulse 88 05/14/2019 2:52 PM COMPUTER ANALYST Temperature 37.1 C (98.7 F) 05/14/2019 2:52 PM COMPUTER ANALYST Respiratory Rate 18 05/14/2019 2:52 PM COMPUTER ANALYST Oxygen Saturation 96% 05/14/2019 2:52 PM COMPUTER ANALYST Inhaled Oxygen Concentration - - Weight 108.9 kg (240 lb) 05/14/2019 2:52 PM COMPUTER ANALYST Height 177.8 cm (5' 10 ) 05/14/2019 2:52 PM COMPUTER ANALYST Body Mass Index 34.44 05/14/2019 2:52 PM COMPUTER ANALYST Plan of Treatment Health Maintenance Due Date Last Done Comments Hepatitis C Virus (HCV) Screening 1950 Cologuard 2001 Immunochemical Fecal Occult Blood 2001 Zoster Immunization (1 of 2) 2001 Pneumococcal Immunization (5 0+ years) (2 of 2 - PCV) 02/07/2018 02/07/2017 Colonoscopy 10/20/2023 10/19/2018, 09/23/2013, 09/23/2013 Colorectal Cancer Screening 10/20/2023 Influenza Immunization (#1) 02/11/202403/14, 03/13/2018 SARS-COV-2 Immunization ( season) 2024 06/23/2021, 09/15/2020, 08/23/2020 Respiratory Syncytial Virus (RSV) Immunization (Adult) (1 - 1-dose 75+ series) 2026 10/19/2018, 09/23/2013, 09/23/2013 DTaP/Tdap/Td Immunization Discontinued 2010, 12/27/2000 TdaP Immunization Completed 07/20/2010 Pneumococcal Immunization Combined Discontinued 02/07/2017 Hepatitis B Immunization Aged Out No longer eligible based on patient's age to complete this topic Meningococcal Immunization (ACWY) Aged Out No longer eligible based on patient's age to complete this topic Rotavirus Immunization Aged Out No lo nger eligible based on patient's age to complete this topic Procedures Procedure Name Priority Date/Time Associated Diagnosis Comments HM COLONOSCOPY Routine 09/23/2013 from Last 3 Months or Most Recently Relevant to Health Maintenance Results * HM COLONOSCOPY (09/23/2013) Bonifacio Sheehan MD PROCEDURE/MINOR SURGICAL ORDMercedes QUILES Final Result from Last 3 Months or Most Recently Relevant to Health Maintenance Insurance MEDICARE [facility] Care Teams Page Designer Relationship Specialty Start Date End Date Isabella Guan MD [address] [place] [address] PCP - General Family Medicine 07/09/18
--- OUTSIDE RECORDS SUMMARY | 2024-08-30 08:11 | XMS_ITS | Clinical Summary ---
Author Organization [facility] Address [address] [place] [address] Care Team Providers Care Electrical And Instrumentation Mechanic Name Role Phone Chaparrita Osorio MD Primary Care Provider [phone] Allergies No known active allergies Medications losartan [...] on file Legal Sex Male 5:24 AM PRODUCTION CONTROL SPECIALIST Gender Identity Not on file Sexual Orientation Not on file Last Filed Vital Signs Vital Sign Reading Time Taken Comments Blood Pressure 117/73 07/12/2022 8:20 AM PRODUCTION CONTROL SPECIALIST Pulse 64 07/12/2022 8:20 AM PRODUCTION CONTROL SPECIALIST Temperature 36.7 C (98 F) 07/12/2022 8:03 AM PRODUCTION CONTROL SPECIALIST Respiratory Rate 14 07/12/2022 8:20 AM PRODUCTION CONTROL SPECIALIST Oxygen Saturation 96% 07/12/2022 8:20 AM PRODUCTION CONTROL SPECIALIST Inhaled Oxygen Concentration - - Weight 104.3 kg (230 lb) 07/04/2022 1:43 PM PRODUCTION CONTROL SPECIALIST Height 177.8 cm (5' 10 ) 07/04/2022 1:43 PM PRODUCTION CONTROL SPECIALIST Body Mass Index 33 07/04/2022 1:43 PM PRODUCTION CONTROL SPECIALIST Plan of Treatment Health Maintenance Due Date Last Done Comments PHQ-2 (Physician [place]) 1962 Hepatitis C 1969 Zoster Vaccines (1 of 2) 2001 Annual Medicare Wellness Visit 2016 COVID-19 Vaccine ( season) 2024 03/02/2022, 06/23/2021, 09/15/2020, Additional history exists Influenza Adult (#1) 2024 02/13/2020, 04/11/2019, 03/13/2018 PHQ-2 (Physician [place]) 06/12/2024 RSV Immunization or 60+ Years (1 [...] this topic Medical Devices Implanted Type Area Security System Sales Consultant Device Identifier Shelf Expiration Date Model / Serial / Lot Clip Resolution 360 Deg 2.8mm X 235cm - [id number] Implanted:Qty : 3 on 06/25/2021 by Kyle Whittaker DO at [facility] Clip Implant N/A: Abdomen [employer] MARICEL 03/22/2024 [id number] / [id number] / [id number] Resolution 360 Ultra Clip Implanted:Qty : 1 on 06/25/2021 by Kyle Whittaker DO at [facility] N/A: Abdomen [id number] 03/25/2024 / [id number] / [id number] Procedures Procedure Name Priority Date/Time Associated Diagnosis Comments COLONOSCOPY Routine 07/12/2022 6:47 AM PRODUCTION CONTROL SPECIALIST from Last 3 Months or Most Recently Relevant to Health Maintenance Insurance MEDICARE [facility] Care Teams Electrical And Instrumentation Mechanic Relationship Specialty Start Date End Date Chaparrita Osorio MD [address] [place] [address] PCP - General FAMILY PRACTICE 06/25/21
--- OUTSIDE RECORDS SUMMARY | 2024-08-30 08:11 | XMS_ITS | Clinical Summary ---
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 Care Teams Bench Carpenter Relationship Specialty Start Date End Date Bonifacio Sheehan MD [address] [place] [address] PCP - General 05/12/14
== END 2024-08-30 08:05 | disposition home or self-care (01) ==
LOC: ANHIMG 08:05
PROVIDERS: PCP Family Medicine; Visit Provider Urology
DX: N40.0 Benign prostatic hyperplasia without lower urinary tract symptoms (principal); N39.0 Urinary tract infection, site not specified
CPT/HCPCS: 74176

== ENCOUNTER 2025-04-14 00:27 | Day surgery (SDC) | payer MEDICARE, SELFPAY ==
[2025-04-04 11:12] VITALS: BMI 34.1
--- NOTE | 2025-04-04 11:24 | PC.NURSE ---
[facility] has started construction of its new state of the art ER which will open Spring 2026. With this, we anticipate parking may be a challenge for some our surgical patients and families. Parking spaces are limited but are available for all Surgical, obstetrics, and ER patients sharing this lot. If you arrive and find you are having a hard time finding a parking space, please note that we understand the challenges, please drive around the hospital and park near Hospital Entrance 1. When you enter this entrance, you can ask a volunteer to direct or take you back to the surgical waiting area to check in. We appreciate everyone?s understanding of these expected challenges while we build for your future. Report to the Outpatient Waiting Room, entrance under the green pavilion located off [address], at time ___0900am____ on date __04/14/25 . Planned Procedure Time: _1100am .? Time changes happen often and if your time is changed the preop area will call you the afternoon before. - You and your visitor will be asked to self-screen and do not enter if you have any COVID symptoms. Please call surgeon if you need to reschedule. - A mask is optional within the hospital at this time. Patients may have clear liquids (water, carbonated beverages, clear teas, apple juice) until 3 hours prior to surgery with a maximum of 20 ounces. - No food from midnight until time of surgery and no smoking, or chewing tobacco (or any form of nicotine). No chewing gum, candy or mints. (0800am) Take only the following medications with a SIP of water on the morning of surgery: ____NONE DO NOT STOP ANY OF YOUR OTHER PRESCRIPTION MEDICATIONS PRIOR TO SURGERY EXCEPT THE FOLLOWING Hold all vitamins and supplements for 3 days per anesthesiologist. Date of last dose 04/10/25 Medications to discontinue per physician Meloxicam per Dr Mccauley Date to take last dose Pending Please no make-up, nail turkmen, hairspray, perfume, deodorant, or body powder the day of surgery.? No jewelry (including any body piercings) or valuables the day of surgery, leave them at home.? Please take a shower or bath the night before, or the morning of, surgery with an antibacterial soap.? GOLD DIAL. Wear comfortable, loose fitting clothing.? - Jewelry must be removed prior to entering the operating room.? Rings and piercings that are not removed may be cut off. - The hospital will not accept responsibility for valuables.? - Please leave all valuables, including medications, at home the day of surgery. If you are going home after surgery, a licensed tow car driver must drive you home.? - NO public transportation without another adult if you receive anesthesia. - We recommend that an adult stay with you for 24 hours following discharge. - We also recommend that you do not drive, make important decision, drink alcoholic beverages, or take any drugs that were not prescribed by your health care provider for at least 24 hours after your discharge time. Follow any additional instructions given to you from your surgeon. Telephone instructions given to ___Patient & and asked if any additional questions and then verbalized understanding. Patient advised to call surgeon office or pre surgery nurse liaison [phone] if any additional questions.
[2025-04-14] VITALS (10 sets, daily range): BP systolic 114–144; BP diastolic 60–86; PULSE 63–80; RESP 12–18; TEMP 36.2–36.3; O2SAT 92–99
--- OUTSIDE RECORDS SUMMARY | 2025-04-14 00:29 | XMS_ITS | Clinical Summary ---
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 Gender Identity Not on file Sexual Orientation Not on file Last Filed Vital Signs Vital Sign Reading Time Taken Comments Blood Pressure 117/73 07/12/2022 8:20 AM HIGH SCHOOL FOOTBALL COACH Pulse 64 07/12/2022 8:20 AM HIGH SCHOOL FOOTBALL COACH Temperature 36.7 C (98 F) 07/12/2022 8:03 AM HIGH SCHOOL FOOTBALL COACH Respiratory Rate 14 07/12/2022 8:20 AM HIGH SCHOOL FOOTBALL COACH Oxygen Saturation 96% 07/12/2022 8:20 AM HIGH SCHOOL FOOTBALL COACH Inhaled Oxygen Concentration - - Weight 104.3 kg (230 lb) 07/04/2022 1:43 PM HIGH SCHOOL FOOTBALL COACH Height 177.8 cm (5' 10) 07/04/2022 1:43 PM HIGH SCHOOL FOOTBALL COACH Body Mass Index 33 07/04/2022 1:43 PM HIGH SCHOOL FOOTBALL COACH Plan of Treatment Health Maintenance Due Date Last Done Comments Hepatitis C 1969 Zoster Vaccines (1 of 2) 2001 Annual Medicare Wellness Visit 2016 PHQ-2 (Physician [place]) 06/12/2024 COVID-19 Vaccine ( season) 2025 03/02/2022, 06/23/2021, 09/15/2020, Additional history exists Influenza Adult (#1) 2025 02/13/2020, 04/11/2019, 03/13/2018 RSV Immunization or 60+ Years (1 - 1-dose 75+ series) 2026 DTaP, Tdap and Td Vaccines (3 - Td or Tdap) 03/09/2031 03/09/2021, 07/20/2010, 12/27/2000 Colorectal Cancer Screening Colonoscopy (10 Years) 07/12/2032 07/12/2022, 07/12/2022, 06/25/2021, Additional history exists Pneumococcal Vaccine: 50+ Years Completed 12/05/2019, 02/07/2017 Hepatitis A Vaccines Aged Out No long er eligible based on patient's age to complete this topic Meningococcal B Vaccine Aged Out No l onger eligible based on patient's age to complete this topic Meningococcal Vaccine Aged Out No sherry ricardo eligible based on patient's age to complete this topic RSV Immunizations Under 20 Months Aged Out No longer eligible based on patient's age to complete this topic Medical Devices Implanted Type Area Operating Engineer Device Identifier Shelf Expiration Date Model / Serial / Lot Clip Resolution 360 Deg 2.8mm X 235cm - [id number] Implanted:Qty : 3 on 06/25/2021 by Kyle Whittaker DO at [facility] Clip Implant N/A: Abdomen [employer] 03/22/2024 [id number] / [id number] 0 / [id number] Resolution 360 Ultra Clip Implanted:Qty : 1 on 06/25/2021 by Kyle Whittaker, at [facility] N/A: Abdomen [id number] 03/25/2024 / [id number] 00 / [id number] Procedures Procedure Name Priority Date/Time Associated Diagnosis Comments COLONOSCOPY Routine 07/12/2022 6:47 AM HIGH SCHOOL FOOTBALL COACH from Last 3 Months or Most Recently Relevant to Health Maintenance Insurance MEDICARE [facility] Care Teams Cell Tower Climber Relationship Specialty Start Date End Date Chaparrita Osorio MD [address] [place] [address] PCP - General FAMILY PRACTICE 06/25/21
--- OUTSIDE RECORDS SUMMARY | 2025-04-14 00:29 | XMS_ITS | Clinical Summary ---
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
--- OUTSIDE RECORDS SUMMARY | 2025-04-14 00:29 | XMS_ITS | Encounter Summary ---
Author Organization [facility] - [facility] Address [address] [place] [address] Care Team Providers Care Equipment Processer Storage Name Role Phone Chaparrita Osorio MD Primary Care Provider [phone] Encounter Details Date Type Department Care Team (Late st Contact Info) Description 06/21/2021 Prep for Procedure [facility] Day [facility] [place], [place] [id number] Kyle Whittaker, [address] [place] [address] [address] [place] [address] Social History Tobacco Use Types Packs/Day Years Used Date Smoking Tobacco: Never Smokeless Tobacco: Never Alcohol Use Standard Drinks/Week Comments Yes 0 (1 standard drink = 0.6 oz pur e alcohol) seldom Sex and Gender Information Value Date Recorded Sex Assigned at Not on file Legal Sex Male 5:24 AM 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 No / Unsure 06/21/2021 12:36 PM SPRING UPHOLSTERER documented as of this encounter Plan of Treatment Not on file documented as of this encounter Visit Diagnoses Diagnosis History of colon polyps- Primary Personal history of colonic polyps documented in this encounter Care Teams Equipment Processer Storage Relationship Specialty Start Date End Date Chaparrita Osorio MD [address] [place] [address] PCP - General FAMILY PRACTICE 06/25/21 documented as of this encounter
--- OUTSIDE RECORDS SUMMARY | 2025-04-14 00:29 | XMS_ITS | Clinical Summary ---
Author Organization [facility] Address [address] [place] [address] Phone Care Team Providers Care Softball Player Name Role Phone Isabella Guan MD Primary Care Provi brannon Allergies No known active allergies Medications losartan (COZAAR) 100 MG Tablet TK ONE T PO QD 0 05/26/2018 Active pantoprazole (PROTONIX) 40 MG Tablet Delayed Response TK 1 T PO QD MAKE APPT. WITH DOCTOR NICOLASA FOR REFILLS 0 05/28/2018 Active VITAMIN E PO Take 400 Int'l Units by mouth daily. Active Rainier-3 Fatty Acids (FISH OIL PO) Take 1,200 [...] Comments Blood Pressure 138/64 05/14/2019 2:52 PM CLERICAL ADVISER Pulse 88 05/14/2019 2:52 PM CLERICAL ADVISER Temperature 37.1 C (98.7 F) 05/14/2019 2:52 PM CLERICAL ADVISER Respiratory Rate 18 05/14/2019 2:52 PM CLERICAL ADVISER Oxygen Saturation 96% 05/14/2019 2:52 PM CLERICAL ADVISER Inhaled Oxygen Concentration - - Weight 108.9 kg (240 lb) 05/14/2019 2:52 PM CLERICAL ADVISER Height 177.8 cm (5' 10) 05/14/2019 2:52 PM CLERICAL ADVISER Body Mass Index 34.44 05/14/2019 2:52 PM CLERICAL ADVISER Plan of Treatment Health Maintenance Due Date Last Done Comments Hepatitis C Virus (HCV) Screening 1950 Cologuard 1996 Immunochemical Fecal Occult Blood 1996 Zoster Immunization (1 of 2) 2001 Medicare Initial AWV [id number] 07/13/2017 Pneumococcal Immunization (5 0+ years) (2 of 2 - PCV) 02/07/2018 02/07/2017 Colonoscopy 10/20/2023 10/19/2018, 09/23/2013, 09/23/2013 Colorectal Cancer Screening 10/20/2023 Influenza Immunization (#1) 02/10/202503/14, 03/13/2018 SARS-COV-2 Immunization (4 - season) 2025 06/23/2021, 09/15/2020, 08/23/2020 Respiratory Syncytial Virus (RSV) Immunization (Adult) (1 - 1-dose 75+ series) 2026 DTaP/Tdap/Td Immunization Discontinued 2010, 12/27/2000 TdaP Immunization Completed 07/20/2010 Pneumococcal Immunization Combined Discontinued 02/07/2017 Hepatitis B Immunization Aged Out No longer eligible based on patient's age to complete this topic Human Papillomavirus (HPV) Immunization Aged Out No longer eligible based [...] COLONOSCOPY (09/23/2013) Bonifacio Sheehan MD PROCEDURE/MINOR SURGICAL ORDE ETTA Final Result from Last 3 Months or Most Recently Relevant to Health Maintenance Insurance MEDICARE [facility] Care Teams Softball Player Relationship Specialty Start Date End Date Isabella Guan MD [address] [place] [address] PCP - General Family Medicine 07/09/18
[2025-04-14] MEDS: ACETAMINOPHEN 500 MG TABLET 1000 MG PO (10:10)
[2025-04-14] MEDS: KETOROLAC 15 MG/ML VIAL (*BKC) IV PUSH (10:20)
--- NOTE | 2025-04-14 10:23 | WPDHPUPDATE1 ---
History and Physical Update Update Date/Time: 04/14/25 10:23 History and Physical has been reviewed, including an updated exam of the patient. There are NO changes in the patient's condition. Risks, benefits, and alternatives have been discussed and questions answered. Patient agrees to proceed with procedure. Discussed with Dr. Burdick, he has no concerns regarding me proceeding with robotic assisted LIH repair with mesh given pt's low grade prostate CA.
--- NOTE | 2025-04-14 10:52 | WPDANESEPP ---
Anes - Eval Pre Procedure Procedure: Operation Date: 04/14/25 11:00 Proposed Procedures p Robotic Assisted Laparoscopic Left Inguinal Hernia Repair, Possible Open - Lennox Mccauley MD Date/Time: 04/14/25 10:52 Pre Op Diagnosis: Reducible Ing hernia Patient Data Age: 74 Gender: M Height: 1.78 m Weight: 105.4 kg Last Vital Signs Temp 97.4 F L 04/14/25 09:06 Pulse 68 04/14/25 09:06 Resp 18 04/14/25 09:06 BP 144/79 H 04/14/25 09:06 Pulse Ox 99 04/14/25 09:06 O2 Del Method Room Air 04/14/25 09:06 Allergies Allergy/AdvReac Type Severity Reaction Status Date / Time No Known Allergies Allergy Verified 04/04/25 11:02 Home Medications ?Medication ?Instructions ?Recorded ?Confirmed ?Type ascorbic acid (vitamin C) 500 mg 500 mg PO DAILY 12/05/19 04/14/25 History capsule garlic 1,000 mg capsule 1,000 mg PO DAILY 12/05/19 04/14/25 History loratadine 10 mg tablet (Claritin) 10 mg PO DAILY PRN allergy symptoms 12/05/19 04/04/25 History omega-3 fatty acids 1,000 mg 1,000 mg PO DAILY 12/05/19 04/14/25 History capsule (Fish Oil Concentrate) acetaminophen 500 mg tablet 1,000 mg PO Q6H PRN pain 08/12/24 04/04/25 History (Acetaminophen Pain Relief) cholecalciferol (vitamin D3) 125 5,000 unit PO DAILY 08/12/24 04/14/25 History mcg (5,000 unit) capsule mecobalamin (vitamin B12) 2,500 2,500 mcg PO DAILY 08/12/24 04/14/25 History mcg chewable tablet vitamin E 400 unit tablet 450 mg PO DAILY 08/12/24 04/14/25 History meloxicam 7.5 mg tablet 7.5 mg PO DAILY 10/28/24 04/04/25 History losartan 100 mg tablet 100 mg PO DAILY #90 tabs 02/22/25 04/14/25 Rx pantoprazole 40 mg tablet,delayed See Rx Instructions .Route 03/25/25 04/14/25 Rx release .COMPLEX #90 tabs finasteride 5 mg tablet 5 mg PO DAILY 04/04/25 04/14/25 History meloxicam 15 mg tablet 15 mg PO DAILY 04/04/25 04/14/25 History sildenafil 100 mg tablet 100 mg PO PRN PRN sexual activity 04/04/25 04/04/25 History Laboratory Tests 04/14/25 10:02 Blood Type Pending Antibody Screen Pending Patient hx anesthesia problems: none Family hx anesthesia problems: none Results Review: All pre-operative results and documents have been reviewed as part of the pre-operative evaluation. [facility] Past Medical History Medical History Hx of acute arthritis Hx of seasonal allergies Hip pain Shoulder pain Environmental allergies Essential (primary) hypertension Prostate cancer Finger fracture (~10/25/18) left hand - pointer finger GERD (gastroesophageal reflux disease) Pre-diabetes Degenerative disc disease mild History of prostate cancer low grade, followed by urologist Erectile dysfunction Smith esophagus Surgical History Surgical History Hx of rotator cuff surgery (~08/13/24) Hx of colonoscopy 12/1995, 07/2005, 07/2010, 09/2013, 10/2018 History of hand surgery (~10/30/18) pointer finger on Left hand surgery History of arthroscopic knee surgery (~10/2011) Hx of tonsillectomy (~1962) Family History Family History Mother Family history of malignant neoplasm Father Family history of lung cancer Sibling Family history of lung cancer Heart problem Sibling Dementia Sibling Dementia Social History Social History Smoking status: Never smoker Second hand tobacco smoke exposure: Yes Alcohol intake: current Alcohol use details: 1 per month Substance use: never Substance use type: does not use Do You Feel Safe in your Home?: Yes Lack of Transportation: No Lack of Food: Never True Current Housing: I Have Housing Concerned About Future Housing: No Difficulty Paying Gas/Electric Bills: No Difficulty Paying for Meds: No Currently Unemployed: No Education: High School Diploma/GED Difficulty w/ Childcare or Family Care: No Living arrangements: with family Additional living arrangements comments: Occupation/Education: retired Gender identity (if verbalized by the patient): Male Spiritual care concerns: No Exam Day of Procedure 04/14/25 10:52 Patient weight: overweight Heart: regular rate and rhythm Lungs: clear to auscultation
--- NOTE | 2025-04-14 10:53 | P.PNAN_ITS ---
Anes - Eval Final PreProcedure Day of Procedure 04/14/25 10:53 Patient weight: overweight Heart: regular rate and rhythm Lungs: clear to auscultation Airway: Mallampati scale class II Neurological: alert and oriented Last oral intake: >/= 8 hours ASA classification: III Emergent: no Anesthetic plan: proceed Anesthesia type and monitoring: general ETT and standard monitoring Results Review: All pre-operative results and documents have been reviewed as part of the pre- operative evaluation. Informed Consent: The patient's anesthetic plan and its attendant risks and benefits were discussed with the patient/family/POA. Questions were solicited and answers provided to the satisfaction of the patient/family/POA.
--- NOTE | 2025-04-14 10:55 | P.PNAN_ITS ---
Anes - Eval Final PreProcedure Day of Procedure 04/14/25 10:55 Patient weight: obese Heart: regular rate and rhythm Lungs: decreased breath sounds Airway: Mallampati scale class II Neurological: alert and oriented Last oral intake: >/= 8 hours ASA classification: III Emergent: no Anesthetic plan: proceed Anesthesia type and monitoring: general ETT and standard monitoring Results Review: All pre-operative results and documents have been reviewed as part of the pre- operative evaluation. Informed Consent: The patient's anesthetic plan and its attendant risks and benefits were discussed with the patient/family/POA. Questions were solicited and answers provided to the satisfaction of the patient/family/POA.
[2025-04-14] MEDS: ceFAZolin 2 GM in SODIUM CHLORIDE 0.9% IV 50 ML 100 ML IVPB (10:57)
[2025-04-14] MEDS: LACTATED RINGERS 1,000 ML 30 ML IV CONT ×2 (11:15→13:21)
[2025-04-14] MEDS: LIDO 1%/EPINEPHRINE 1:100,000 50 ML VIAL (11:51)
[2025-04-14] MEDS: fentaNYL CITRATE INJ (*CRX) 100 MCG/2 ML VIAL 25 MCG IV PUSH ×6 (14:04→15:34)
[2025-04-14] MEDS: oxyCODONE HCL (*CRX) 5 MG TAB IR PO (14:40)
--- NOTE | 2025-04-14 15:44 | P.OP_ITS ---
Procedure Note - Detailed Date of Procedure 04/14/25 Pre-op Diagnosis Reducible left inguinal hernia Post-op Diagnosis Same Procedure Performed Robotic assisted laparoscopic left inguinal hernia repair with Bard 3D mid weight mesh Surgeon Lennox Mccauley MD Jewelry Drilling Machine Operator Eyad Bailey D.O. Anesthesia General Indications Patient is a 74-year-old white male presented with complaints of having a bulge in his left groin region. Enlarging over time and causing him some symptoms. On examination has a large reducible left inguinal hernia. Presents now for elective robotic assisted laparoscopic left inguinal hernia repair with mesh. Findings Patient had a large reducible left inguinal hernia with both a direct and indirect component consistent with a pantaloon left inguinal hernia. No evidence of right inguinal hernia. Description of Procedure After informed consent was obtained patient was brought to the operating room was placed supine position and then general endotracheal anesthesia was administered. The abdomen and bilateral groin regions were then prepped and draped usual sterile fashion. A time-out was then performed correctly identifying the patient as well as procedure to be performed. Site marking was verified and he was given perioperative IV antibiotics. He 1st entered the abdomen left upper quadrant utilizing a 5mm Optiview port. Once inside the abdomen insufflated to adequate pneumoperitoneum of 15mmHg of CO2. The patient was then placed in 15? head-down Trendelenburg position on the operating table and then the small-bowel follow the pelvis. I then easily see that there was a large pantaloon left inguinal hernia consisting of both the direct and indirect component. There was no bowel incarcerated within the hernia. There was no evidence for right inguinal hernia. Then proceeded to place robotic trocar ports across the mid abdomen. An 8mm periumbilical trocar port was then placed as well as bilateral 8mm trocar ports through the rectus muscles at the same level as the umbilical port. The robot was then brought to the patient's bedside and docked and then the robotic arms were attached to the robotic ports. Robotic instruments were then advanced into the abdomen without difficulty under direct visualization. I then scrubbed out the procedure sent down at the robotic console to perform the dissection. I 1st started by making a prepe ritoneal flap starting anterior and inferior to the left anterior superior iliac spine. This extended across the lower abdominal wall and across the midline dividing the left side of the median umbilical ligament. Dissection was then carried down in this preperitoneal plane distally and identified the inferior epigastric vessels. These were preserved without injury. I dissected medially down to the level the pubic tubercle and dissected down to the space of Retzius for couple cm. I then proceeded to reduce the small indirect inguinal hernia sac dissecting it free from the other cord structures. There was a small cord lipoma which was dissected free the other cord structures as well resected. That piece of adipose tissue was removed from the abdomen through the previously placed 10mm upper quadrant trocar port assistant real estate manager port site. I then reduced the contents out of the direct defect pseudo sac. I then dissected the peritoneum up onto the psoas muscle identifying the genitofemoral nerve and preserving that nerve without injury. The peritoneum was dissected off the vas deferens until cord structures from the vas deferens over the psoas muscle. I dissected medially down and identified the femoral space and there was just some normal-looking kyile tissue within the hernia defect. The obturator canal was identified there was no herniated contents within the canal. At this point I proceeded to plicate direct hernia defect and pseudo sac. This done with a 2-0 absorbable V lock suture. I then chose a piece of Bard 3D mid weight mesh measuring [id number] oriented for the left groin region. It was placed into the abdomen through the bedside assistant real estate manager port site and then spread out to cover the whole myopectineal orifice. The lower edge the mesh down to the space of Retzius by a couple cm. It covered the obturator canal and the femoral canal. I would also cover the plicated pseudo sac and the direct defect as well as the indirect defect and dilated internal ring. The mesh was then secured at the pubic tubercle with a 2-0 Vicryl suture. It was secured laterally anterior medial to the left anterior suprailiac spine with a 2-0 Vicryl suture. A 3rd s uture was then placed to approximate the mesh to the closed direct space. I then checked and there was no abnormal bleeding. When I pulled up the peritoneal flap there was no folding of the proximal edge of the mesh. I then proceeded to close the peritoneal flap utilizing a running 2-0 absorbable V lock suture. I then checked in all the bowel appeared to be normal. There was no bleeding and there there was a very small hole the peritoneal flap which was closed with a 2-0 Vicryl suture. I then had the robotic instruments removed from the abdomen and the robot was undocked from the patient's bedside. I scrubbed back in the procedure to close the 8mm periumbilical trocar port fascial defect as well as the 10mm left upper quadrant trocar port fascial defect. Down the 0 Vicryl suture placed transfascially with the suture assist device. All the port sites were removed and the abdomen was allowed to decompress. I irrigated all the port sites sterile saline solution hemostasis was good. All the port sites were then closed at the skin level utilizing a running subcuticular 4-0 Monocryl suture. The incisions were then cleaned the skin glue was applied. A scrotal support was placed as well. The patient tolerated the procedure well no complications. All sponges, needles, and instrument counts were correct at the end procedure. EBL was _10__cc. The patient was awakened and taken to recovery in stable and satisfactory condition. Implants Bard 3D mid weight mesh measuring [id number] (extra-large) oriented for left groin region. Estimated Blood Loss 10 Drains No Packing No Pathology None sent Complications No immediate complications Condition Stable Disposition PACU [facility] Billing Surgery - Charge Forward: Surgery Billing
== END 2025-04-14 15:50 | disposition home or self-care (01) ==
PROVIDERS: PCP Family Medicine; Visit Provider Surgery
PROC: 8E0Y4CZ Robotic Assisted Procedure of Lower Extremity, Percutaneous Endoscopic Approach (ICD-10-PCS; CPT 49650; principal; 2025-04-14 11:00)
DX: K40.90 Unilateral inguinal hernia, without obstruction or gangrene, not specified as recurrent (principal); E66.9 Obesity, unspecified; Z68.33 Body mass index [BMI] 33.0-33.9, adult
CPT/HCPCS: 49650; S2900; 36415; 86850; 86900; 86901; J0690; A9270; C1781; J1100; J1885; J2003; J2004; J2405; J2704; J3010; J7030; J7120

== ENCOUNTER 2025-04-23 15:14 | Outpatient (CLI) | payer MEDICARE, SELFPAY ==
--- OUTSIDE RECORDS SUMMARY | 2025-04-23 16:03 | XMS_ITS | Clinical Summary ---
Author Organization [facility] Address [address] [place] [address] Phone Care Team Providers Care Solution Lead Name Role Phone Isabella Guan MD Primary Care Provi brannon Allergies No known active allergies Medications losartan (COZAAR) 100 MG Tablet TK ONE T PO QD 0 05/26/2018 Active pantoprazole (PROTONIX) 40 MG Tablet Delayed Response TK 1 T PO QD MAKE APPT. WITH DOCTOR NICOLASA FOR REFILLS 0 05/28/2018 Active VITAMIN E PO Take 400 Int'l Units by mouth daily. Active [place]-3 Fatty Acids (FISH OIL PO) Take 1,200 [...] Comments Blood Pressure 138/64 05/14/2019 2:52 PM PERSONNEL DIRECTOR Pulse 88 05/14/2019 2:52 PM PERSONNEL DIRECTOR Temperature 37.1 C (98.7 F) 05/14/2019 2:52 PM PERSONNEL DIRECTOR Respiratory Rate 18 05/14/2019 2:52 PM PERSONNEL DIRECTOR Oxygen Saturation 96% 05/14/2019 2:52 PM PERSONNEL DIRECTOR Inhaled Oxygen Concentration - - Weight 108.9 kg (240 lb) 05/14/2019 2:52 PM PERSONNEL DIRECTOR Height 177.8 cm (5' 10) 05/14/2019 2:52 PM PERSONNEL DIRECTOR Body Mass Index 34.44 05/14/2019 2:52 PM PERSONNEL DIRECTOR Plan of Treatment Health Maintenance Due [...] Recently Relevant to Health Maintenance Insurance MEDICARE [facility] Care Teams Solution Lead Relationship Specialty Start Date End Date Isabella Guan MD [address] [place] [address] PCP - General Family Medicine 07/09/18
--- OUTSIDE RECORDS SUMMARY | 2025-04-23 16:03 | XMS_ITS | Encounter Summary ---
Author Organization [facility] Address [address] [place] [address] Care Team Providers Care Supervisor Core Drilling Name Role Phone Chaparrita Osorio MD Primary Care Provider Encounter Details Date Type Department Care Team (Late st Contact Info) Description 06/21/2021 Prep for Procedure [facility] One Day [facility] [place], [place] [id number] Kyle Whittaker, [address] [place] [address] [address] [place] [address] Social History Tobacco Use Types Packs/Day Years Used Date Smoking Tobacco: Never Smokeless Tobacco: Never Alcohol Use Standard Drinks/Week Comments Yes 0 (1 standard drink = 0.6 oz pur e alcohol) seldom Sex and Gender Information Value Date Recorded Sex Assigned at Not on file Legal Sex Male 5:24 AM JR. JAVA DEVELOPER Gender Identity Not on file Sexual Orientation Not on file COVID-19 Exposure Response Date Recorded In the last month, have you been in contact with someone who was confirmed or suspected to have Coronavirus / COVID-19? No / Unsure 06/21/2021 12:36 PM JR. JAVA DEVELOPER documented as of this encounter Plan of Treatment Not on file documented as of this encounter Visit Diagnoses Diagnosis History of colon polyps- Primary Personal history of colonic polyps documented in this encounter Care Teams Supervisor Core Drilling Relationship Specialty Start Date End Date Chaparrita Osorio MD [address] [place] [address] PCP - General FAMILY PRACTICE 06/25/21 documented as of this encounter
--- OUTSIDE RECORDS SUMMARY | 2025-04-23 16:03 | XMS_ITS | Clinical Summary ---
Author Organization [address] Address [address] [place] [address] Care Team Providers Care Sorter Laundry Articles Name Role Phone Bonifacio Sheehan MD Primary Care Provider [phone] Social History Tobacco Use Types Packs/Day Years Used Date Smoking Tobacco: Never Assessed Personal Safety Answer Date Recorded Getting School Help Needed Not on file 08/25 Sex and Gender Information Value Date Recorded Sex Assigned at Not on file Legal Sex Male 11:54 PM OPTICAL DISPENSER Gender Identity Not on file Sexual Orientation Not on file Plan of Treatment Not on file Insurance MEDICARE [facility] Address: [address] [address] [facility] Care Teams Sorter Laundry Articles Relationship Specialty Start Date End Date Bonifacio Sheehan MD [address] [place] [id number] PCP - General 05/12/14
--- OUTSIDE RECORDS SUMMARY | 2025-04-23 16:03 | XMS_ITS | Clinical Summary ---
Author Organization [facility] Address [address] [place] [address] Care Team Providers Care Lamp Mechanic Name Role Phone Chaparrita Osorio MD Primary Care Provider [phone] Allergies No known active allergies Medications losartan [...] on file Legal Sex Male 5:24 AM SHIPBOARD INTELLIGENCE ANALYST Gender Identity Not on file Sexual Orientation Not on file Last Filed Vital Signs Vital Sign Reading Time Taken Comments Blood Pressure 117/73 07/12/2022 8:20 AM SHIPBOARD INTELLIGENCE ANALYST Pulse 64 07/12/2022 8:20 AM SHIPBOARD INTELLIGENCE ANALYST Temperature 36.7 C (98 F) 07/12/2022 8:03 AM SHIPBOARD INTELLIGENCE ANALYST Respiratory Rate 14 07/12/2022 8:20 AM SHIPBOARD INTELLIGENCE ANALYST Oxygen Saturation 96% 07/12/2022 8:20 AM SHIPBOARD INTELLIGENCE ANALYST Inhaled Oxygen Concentration - - Weight 104.3 kg (230 lb) 07/04/2022 1:43 PM SHIPBOARD INTELLIGENCE ANALYST Height 177.8 cm (5' 10) 07/04/2022 1:43 PM SHIPBOARD INTELLIGENCE ANALYST Body Mass Index 33 07/04/2022 1:43 PM SHIPBOARD INTELLIGENCE ANALYST Plan of Treatment Health Maintenance Due Date Last Done Comments Hepatitis C 1969 Zoster Vaccines (1 of 2) 2001 Annual Medicare Wellness Visit 2016 PHQ-2 (Physician [place]) 06/12/2024 COVID-19 Vaccine ( season) 2025 03/02/2022, [...] this topic Medical Devices Implanted Type Area Spotter Device Identifier Shelf Expiration Date Model / Serial / Lot Clip Resolution 360 Deg 2.8mm X 235cm - [id number] Implanted:Qty : 3 on 06/25/2021 by Kyle Whittaker DO at [facility] Clip Implant N/A: Abdomen [employer] 03/22/2024 [id number] / [id number] / [id number] Resolution 360 Ultra Clip Implanted:Qty : 1 on 06/25/2021 by Kyle Whittaker, at [facility] N/A: Abdomen [id number] 03/25/2024 / [id number] / [id number] Procedures Procedure Name Priority Date/Time Associated Diagnosis Comments COLONOSCOPY Routine 07/12/2022 6:47 AM SHIPBOARD INTELLIGENCE ANALYST from Last 3 Months or Most Recently Relevant to Health Maintenance Insurance MEDICARE [facility] Care Teams Lamp Mechanic Relationship Specialty Start Date End Date Chaparrita Osorio MD [address] [place] [address] PCP - General FAMILY PRACTICE 06/25/21
== END 2025-04-23 15:15 | disposition home or self-care (01) ==
PROVIDERS: PCP Family Medicine; Visit Provider Urology
DX: N39.0 Urinary tract infection, site not specified (principal)
CPT/HCPCS: 87077; 87086; 87186